=== PATIENT | male | born 1985 | race Caucasian/White ===

== ENCOUNTER 2020-05-27 06:53 | Outpatient (NON) | payer BC, SELFPAY ==
[2020-05-28 13:44] LABS: SARS-CoV-2 RNA PCR Negative
== END 2020-05-27 06:54 ==
LOC: ANHCOVIDDT 06:58
PROVIDERS: PCP Family Medicine Adolescent Medicine; Visit Provider Family Medicine Adolescent Medicine
DX: Z20.828 Contact with and (suspected) exposure to other viral communicable diseases (principal); R05 Cough; R53.83 Other fatigue; R51.9 Headache, unspecified; R06.00 Dyspnea, unspecified
CPT/HCPCS: 87635; C9803; U0003

== ENCOUNTER 2021-12-28 08:14 | Emergency (ER) | payer BC, SELFPAY ==
--- NOTE | 2021-12-28 08:17 | ED.URI ---
HPI - URI/Sore Throat General Chief Complaint: Skin/Abscess/Foreign Body Stated Complaint: headache rash cough Time Seen by Provider: 12/28/21 08:18 Source: patient and RN notes reviewed History of Present Illness HPI Narrative: Patient is a 36-year-old male who presents the urgent care with complaints of headache, cough, rash. Patient states that the rash started 2 weeks ago and he believes it is due to a new vape that he had been using. Patient states that the cough and headache started yesterday and he has been using nasal spray for the nasal congestion and sinus pressure. Patient denies of any fever, nausea or vomiting. States that he has had had some chills last night. Denies of any ill exposures. No other acute complaints. No acute distress noted. Patient aware of the plan of care. Some parts of this dictation were generated by voice recognition software and may contain typographical and/or grammatical inaccuracies. Related Data Home Medications Medication Instructions Recorded Confirmed amitriptyline 50 mg tablet 50 mg PO DAILY 12/28/21 12/28/21 buspirone 10 mg tablet 10 mg PO TID PRN Anxiety 12/28/21 12/28/21 venlafaxine 75 mg capsule,extended 75 mg PO DAILY 12/28/21 12/28/21 release 24 hr Allergies Allergy/AdvReac Type Severity Reaction Status Date / Time sulfamethoxazole Allergy Unknown Unknown Verified 12/28/21 08:26 trimethoprim Allergy Unknown Unknown Verified 12/28/21 08:26 Review of Systems Review of Systems: CONSTITUTIONAL: Denies fever, chills, or sweats. EYES: Denies visual changes, redness, or discharge. ENT: Reports of sinus pressure, nasal congestion CARDIOVASCULAR: Denies chest pain, palpitations, or edema. RESPIRATORY: Reports of cough without dyspnea GASTROINTESTINAL: Denies abdominal pain, nausea, vomiting, or diarrhea. GENITOURINARY: Denies dysuria or hematuria. SKIN: Reports of itchy red hives MUSCULOSKELETAL: Denies back pain, joint pain, or myalgia. NEUROLOGIC: Denies headache, numbness, or weakness. All other systems reviewed are negative, except as documented in HPI. PMFSH Comments At the time of my signature, I reviewed and agree with the nursing past medical, surgical, social, and family history. There is no relevant family history pertinent to the patient complaint. Exam Narrative: GENERAL: This is a well-nourished, well-developed patient, in no apparent distress. HEAD: normocephalic, atraumatic. Frontal sinus pressure EYES: PERRL. Sclera clear/white. Vision is grossly intact. EARS: External ears normal, auditory canals clear and without drainage, TMs normal without perforation. Hearing grossly intact. NOSE: External nose normal with no obvious nasal discharge, nares without redness, clear rhinorrhea rhinorrhea. THROAT: Mucous membranes moist, posterior pharynx clear. Moderate postnasal drainage NECK: Neck supple CARDIOVASCULAR: Regular rate and rhythm without murmurs, gallops, or rubs. RESPIRATORY: Clear to auscultation. Breath sounds equal bilaterally. No wheezes, rales, or rhonchi. SKIN: Raised blanching urticaria noted to bilateral forearms, trunk and abdomen NEURO: awake, alert, and oriented to person, place and time. There were no obvious focal neurologic abnormalities. EXTREMITIES: No clubbing, cyanosis, or edema. Course Course Level of Care: Express Care Visit Vital Signs Vital signs: Vital Signs Temperature 97.5 F L 12/28/21 08:20 Pulse Rate 92 12/28/21 08:20 Respiratory Rate 16 12/28/21 08:20 Blood Pressure 131/84 12/28/21 08:20 Pulse Oximetry 99 12/28/21 08:20 Oxygen Delivery Room Air 12/28/21 08:20 Temperature 97.5 F L 12/28/21 08:20 Pulse Rate 92 12/28/21 08:20 Respiratory Rate 16 12/28/21 08:20 Blood Pressure 131/84 12/28/21 08:20 Pulse Oximetry 99 12/28/21 08:20 Oxygen Delivery Room Air 12/28/21 08:20 Reviewed MDM - URI/Sore Throat MDM Narrative Medical decision making narrative: Advised the patient to c
[2021-12-28 08:20] VITALS: BP 131/84; PULSE 92; RESP 16; TEMP 36.4; O2SAT 99
== END 2021-12-28 08:50 | disposition home or self-care (01) ==
PROVIDERS: Emergency Provider Nurse Practitioner Family; PCP Family Medicine Adolescent Medicine
DX: L50.9 Urticaria, unspecified (principal); J32.9 Chronic sinusitis, unspecified; F41.9 Anxiety disorder, unspecified; F32.A Depression, unspecified
CPT/HCPCS: 99213; G0463